=== PATIENT | female | born 1975 | race Caucasian/White ===

== ENCOUNTER 2025-03-24 14:22 | Emergency (ER) | payer OTHER, SELFPAY ==
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
[2025-03-24 14:28] VITALS: BP 142/82; PULSE 87; RESP 16; TEMP 36.8; O2SAT 100
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
[2025-03-24 19:42] VITALS: BP 110/78; PULSE 71; RESP 18; TEMP 36.6; O2SAT 97
[2025-03-25 11:02] LABS: Estimated CRCL calculation 59 ml/min; Estimated Glomerular Filt Rate 58
== END 2025-03-24 19:43 | disposition home or self-care (01) ==
LOC: ANHED 19:33
PROVIDERS: Emergency Provider Student in an Organized Health Care Education/Training Program
DX: M62.838 Other muscle spasm (principal); V87.7XXA Person injured in collision between other specified motor vehicles (traffic), initial encounter
CPT/HCPCS: 36415; 70450; 71260; 72125; 72129; 72132; 73030; 74177; 82565; 99284; L0140; Q9967